=== PATIENT | male | born 1960 | race Caucasian/White ===

== ENCOUNTER 2017-06-09 08:13 | Day surgery (SDC) | payer OTHER ==
[~2017-06-09 08:13] MED LIST: LIDOCAINE W/ SODIUM BICARB 0.5 ML SYR ONE; Lactated Ringers 1,000 ML PRIMARY IV ONE
[2017-06-09] MEDS ORDERED: GLYCOPYRROLATE 0.2 MG/1 ML VIAL ONE (09:14)
--- NOTE | 2017-06-09 09:35 | GEN.OPNOTE ---
Colonoscopy Procedure Note Surgery Date: 06/09/17 Preoperative Diagnosis: Screening colonoscopy Postoperative Diagnosis: Normal-appearing colon. Screening colonoscopy Procedure: Colonoscopy Surgeon: Garett Frances MD Anesthesia Provider: Elizabeth Baker CRNA Anesthesia Type: MAC Indications: Screening colonoscopy Findings: Prep : Excellent Cecum : Scope was advanced all way to the cecum. Ileocecal valve clearly identified. Patient normal appearance cecum Ascending : Ascending colon was free from disease Transverse : Transverse colon had no polyps tumors or cancers Sigmoid : Descending and sigmoid colon within normal limits Rectum : Rectum had no abnormal pathology except some antral hemorrhoids Digital Rectal Exam : No rectal masses palpated prostate smooth and regular A lubricated flexible colonoscope was inserted and passed to the blind end of the cecum.
[2017-06-09 09:47] VITALS: RESP 14
[2017-06-09 10:31] VITALS: TEMP 97.6
== END 2017-06-09 10:12 | disposition home or self-care (01) ==
LOC: SDSC 08:13
PROVIDERS: ATTEND Surgery
DX: Z12.11 Encounter for screening for malignant neoplasm of colon (principal)
CPT/HCPCS: 45378; J2704; J7120